=== PATIENT | female | born 1995 | race Two or more races ===

== ENCOUNTER 2020-01-19 21:35 | Emergency (ER) | payer OTHER ==
[~2020-01-19] VITALS: Ht 162.6 cm; Wt 61.7 kg
[2020-01-19 21:59] VITALS: BP 141/86
--- NOTE | 2020-01-19 21:59 | NUR ---
ED Nurse Note: Pt ambulated into ed from home CO laceration to left thumb after cup broke while washing dishes. Laceration presents with clean and regular borders. Pt aao x 4, ambulates with steady gait, no loss of ROM to digit. Pt states injury occured x 1 hour ago. Laceration irrigated and cleaned for further inspection. No debris noted. Awaiting further orders. ERMD at bedside
--- NOTE | 2020-01-19 21:59 | NUR ---
ED Nurse Note: ERMD at bedside
[2020-01-19] MEDS ORDERED: Lidocaine 1% Plain 30 ml INJ ONE ×2 (22:01→22:30)
--- NOTE | 2020-01-19 22:10 | NUR ---
ED Nurse Note: ERMD at bedside for laceration repair.
--- NOTE | 2020-01-19 22:15 | NUR ---
ED Nurse Note: laceration bandaged. pt tolerated well no ss of distress noted.
[2020-01-19 22:19] VITALS: BP 132/81
--- NOTE | 2020-01-19 22:19 | NUR ---
ER DISCHARGE NOTE: Patient is cleared to be discharged home per ERMD, pt is aox4, 98% on room air, with stable vital signs. pt was given dc instructions, pt was able to verbalize understanding, pt id band removed. pt is able to ambulate with steady gait. pt took all belongings.
--- NOTE | 2020-01-19 22:20 | Emergency Room Report ---
History of Present Illness General Chief Complaint: Laceration Source: Patient Present Illness HPI Disclaimer: Please note that this report is being documented using i-nexus technology. This can lead to erroneous entry secondary to incorrect interpretation by the dictating instrument. HPI: 24-year-old female presents with laceration of the left thumb. She sustained it from a cup that broke in her hand. She denies any other injuries. No other medical complaints at this time. Allergies: Coded Allergies: No Known Allergies (Unverified , 01/19/20) COVID-19 Screening Contact w/high risk pt: No Experienced COVID-19 symptoms?: No COVID-19 Testing performed SENIOR EXAMINER: No Patient History Last Menstrual Period: 2 days ago Now: No : 0 Para: 0 Reviewed Nursing Documentation: PMH: Agreed; PSxH: Agreed Nursing Documentation-PMH Past Medical History: No Stated History Review of Systems All Other Systems: negative except mentioned in HPI Physical Exam Vital Signs Date Time Temp Pulse Resp B/P (MAP) Pulse Ox O2 Delivery O2 Flow Rate FiO2 01/19/20 21:49 97.5 89 16 141/86 (104) 99 Room Air Sp02 EP Interpretation: reviewed, normal General Appearance: well appearing, no apparent distress Head: normocephalic, atraumatic Eyes: bilateral eye PERRL, bilateral eye EOMI ENT: hearing grossly normal, moist mucus membranes Neck: full range of motion, supple Respiratory: lungs clear, normal breath sounds, no rhonchi, no respiratory distress, no retraction, no wheezing Cardiovascular #1: normal peripheral pulses, regular rate, rhythm, no murmur Gastrointestinal: non tender, soft, non-distended, no guarding Musculoskeletal: other - Laceration noted to left thumb along the volar surface , 1 cm, full range of motion of thumb, suspicion for tendon involvement Neurologic: alert, oriented x3, no focal defects Skin: normal color, warm/dry Procedures Laceration/Wound Repair Laceration/Wound Repair : Consent: Verbal Wound Location: upper extremity Wound's Depth, Shape: superficial Wound Explored: clean Anesthesia: 1% Lidocaine Wound Debrided: None Wound Repaired With: sutures Suture Size/Type: 5:0 Number of Sutures: 3 Patient Tolerated: Well Complications: None Medical Decision Making Diagnostic Impression: Primary Impression: Laceration of left thumb ER Course Patient presented for laceration to left thumb. Laceration closed by me. Full range of motion of thumb. Neurovascularly intact on exam. Low suspicion for tendon injury. Patient discharged with follow-up in 1 week for suture removal. Last Vital Signs Date Time Temp Pulse Resp B/P (MAP) Pulse Ox O2 Delivery O2 Flow Rate FiO2 01/19/20 21:59 97.5 89 16 141/86 99 Room Air Disposition: HOME, SELF-CARE Condition: Improved Patient Instructions: Laceration Care, Adult Additional Instructions: Please return in 1 week for suture removal. Please return sooner for any signs of infection such as increased pain redness or drainage from the wound. Jorge Chavez M.D. Jan 19, 2020 22:20
== END 2020-01-19 22:19 | disposition home or self-care (01) ==
LOC: EMR 22:10
DX: S61.012A Laceration without foreign body of left thumb without damage to nail, initial encounter (principal); W45.8XXA Other foreign body or object entering through skin, initial encounter; Y93.9 Activity, unspecified; Y92.9 Unspecified place or not applicable
CPT/HCPCS: 12001; J2001; Z7502; 99283